=== PATIENT | male | born 1935 | race Caucasian/White ===

== ENCOUNTER → 2016-12-09 | Outpatient (CLI) | payer MEDICARE, OTHER ==
--- NOTE | ~2016-12-09 | ST ---
Unit #: [id number] #: [id number] Patient: MANDO PITTMAN [id number] [facility]. [place] [id number] [facility]. [place], [place] [address] [id number] O MR#: [id number] NAME: MANDO PITTMAN : 1935 SEX: M STUDY DATE/TIME: 12/09/2016 UNIT: [facility] ROOM: STUDY DESCRIPTION: Attending Physician: Patricio Scott M.D. Referring Physician: Patricio Scott M.D. Primary Care Physician: Michael Morocho M.D. CARDIOLOGY REPORT EXAM Lexiscan Cardiolite stress test. FINDINGS Baseline EKG: Atrial flutter with variable conduction with ventricular rate 51 beats per minute, Q wave in V1, poor R-wave progression, frequent premature ventricular complex. PROCEDURE Lexiscan is a 4-minute test with Lexiscan being injected within the first minute followed by Cardiolite. EKG during the test was equivocal to baseline. No acute ischemic changes. The patient had no complaints of chest pain, palpitations, or dizziness. Had increased shortness of breath and fatigueness which resolved in recovery phase. Continues to show frequent premature ventricular complexes. Maximum heart rate response was 67 beats per minute with a maximum blood pressure response of 133/57 mmHg. Cardiolite was injected after Lexiscan within the first minute of the test. Radionuclide tests pending. Please correlate with nuclear images. Dictated by... Karen Pan A.P.R.N. for Gregorio Martínez/erwin TD: 12/09/2016 09:00 JOB #: [id number] CARDIOLOGY REPORT Page 1 of 1 X Karen Pan APRN CARDIOLOGY REPORT
--- NOTE | ~2016-12-09 | TH ---
Unit #: [id number] #: [id number] Patient: MANDO PITTMAN [id number] [facility]. [place], [place] [address] [id number] O MR#: [id number] NAME: MANDO PITTMAN : 1935 SEX: M STUDY DATE/TIME: 12/09/2016 UNIT: [facility] ROOM: STUDY DESCRIPTION: Attending Physician: Patricio Scott M.D. Referring Physician: Patricio Scott M.D. Primary Care Physician: Michael Morocho M.D. CARDIOLOGY REPORT EXAM Lexiscan Cardiolite stress test, nuclear portion. PROCEDURE Using technetium 99m labeled Cardiolite, rest and stress SPECT images were obtained. Multiple SPECT images were obtained in various views including horizontal and vertical long axis and short axis views of the left ventricle. Images were obtained by gated SPECT method. The patient was administered 12 mCi of Cardiolite at rest. The patient was administered 32.8 mCi of Cardiolite after Lexiscan infusion was completed. On the stress images, there is a small area of mild decreased isotope activity in the inferoapical wall. The rest images show a larger area of decreased isotope activity inferoapically. Comparing rest and stress images, there is a small area of predominantly fixed defect seen inferoapically most likely due to soft tissue artifact. No obvious stress-induced ischemia noted. The left ventricular ejection fraction is calculated to be 52%. There is no focal wall motion abnormality seen. The left ventricular cavity is mildly dilated both at rest and post stress. CONCLUSION 1. No obvious stress-induced ischemia noted. 2. There is a small area of predominantly fixed defect seen inferoapically most likely due to soft tissue artifact. 3. The left ventricular ejection fraction is calculated to be 52%. 4. There is no focal wall motion abnormality seen. 5. The left ventricular cavity is mildly dilated both at rest and post stress. 6. Normal Lexiscan Cardiolite stress test. 7. Technically somewhat limited study due to patient's body habitus. Clinical correlation is requested. Dictated by... Gregorio Martínez TD: 12/09/2016 12:14 JOB #: [id number] Unit #: [id number] #: [id number] Patient: MANDO PITTMAN CARDIOLOGY REPORT Page 1 of 1 X Telma Virgen MD <ELECTRONICALLY SIGNED> 12/14/16 [id number] CARDIOLOGY REPORT
== END | disposition home or self-care (01) ==
LOC: CNUC 05:55
DX: Z01.810 Encounter for preprocedural cardiovascular examination (principal); I48.92 Unspecified atrial flutter; I51.7 Cardiomegaly
CPT/HCPCS: 78452; 93017; A9500; J2785